=== PATIENT | female | born 1950 | race Caucasian/White ===

== ENCOUNTER 2016-05-13 11:27 | Outpatient (CLI) | payer MEDICARE | END 2016-05-13 11:28 | disposition home or self-care (01) | LOC: NAV LAB 11:27 | PROVIDERS: ATTEND Internal Medicine | DX: R10.84 Generalized abdominal pain (principal) | CPT/HCPCS: 36415; 82784; 83516; 86255 ==

== ENCOUNTER 2017-04-01 09:44 | Outpatient (CLI) | payer MEDICARE ==
--- NOTE | 2017-04-01 10:13 | RAD ---
CHEST TWO VIEWS: HISTORY: J40 (bronchitis). COMPARISON: Chest one view from 2010. FINDINGS: The lungs are clear with no pneumothorax or effusion. The cardiac silhouette and mediastinal contour s are within normal limits. No osseous abnormality. IMPRESSION: No acute intrathoracic abnormality. POS: [facility]
[2017-04-01 12:25] LABS: #Lymphocytes 1.5 thou/uL (1.20-3.40); #Monocytes 0.3 thou/uL (0.11-0.59); #Neutrophils 2.6 thou/uL (1.40-6.50); %Basophils 0.8 % (0.0-1.0); %Eosinophils 0.7 % (0.0-10.0); %Lymphocytes 32.8 % (21.0-51.0); %Monocytes 7.4 % (0.0-10.0); %Neutrophils 58.3 % (42.0-75.0); Hemoglobin 13.8 g/dL (12.0-16.0); Mean Corpuscular Hemoglobin 31.1 pg (27.0-31.0); Mean Corpuscular Volume 94.3 fl (81.0-99.0); Platelet Count 228 thou/uL (130-400); RBC Distribution Width 11.7 % (11.5-14.5); Red Blood Cell (RBC) Count 4.45 mill/uL (4.20-5.40); White Blood Cell (WBC) Count 4.5 thou/uL (4.8-10.8)
== END 2017-04-01 09:45 | disposition home or self-care (01) ==
LOC: NAV RAD 09:44
PROVIDERS: ATTEND Internal Medicine
DX: J40 Bronchitis, not specified as acute or chronic (principal)
CPT/HCPCS: 36415; 71020; 85025

== ENCOUNTER 2018-08-25 13:46 | Outpatient (CLI) | payer MEDICARE ==
--- NOTE | 2018-08-25 14:50 | RAD ---
RIGHT HIP TWO VIEWS: 08/25/18 HISTORY: Right hip pain. FINDINGS: Degenerative changes are seen manifested by osteophyte formation and joint space narrowing. No fractu re, dislocation or bony destruction seen. IMPRESSION: Right hip osteoarthritis. POS: [facility]
== END 2018-08-25 13:47 | disposition home or self-care (01) ==
LOC: NAV RAD 13:46
PROVIDERS: ATTEND Internal Medicine
DX: M25.551 Pain in right hip (principal); M16.11 Unilateral primary osteoarthritis, right hip

== ENCOUNTER → 2019-09-29 14:42 | Emergency (ER) | payer MEDICARE, OTHER | END | disposition left against medical advice (07) | LOC: NAV ERS 14:42 | DX: Z53.21 Procedure and treatment not carried out due to patient leaving prior to being seen by health care provider (principal) ==

== ENCOUNTER 2020-11-01 12:27 | Outpatient (CLI) | payer MEDICARE, OTHER ==
[2020-11-01 12:52] LABS: PTT 28.6 sec (22.9-36.1); Prothrombin Time 12.7 sec (12.0-14.7)
[2020-11-01 13:21] LABS: Follow-up Coag Comp? YES; Follow-up Result - Coag REPORT FAXED
[2020-11-01 16:55] LABS: Hemoglobin A1c 5.4 % (4.0-6.0)
== END 2020-11-01 12:28 | disposition home or self-care (01) ==
LOC: NAVSJIPCSP 12:27
PROVIDERS: ATTEND Orthopaedic Surgery
DX: Z01.812 Encounter for preprocedural laboratory examination (principal)
CPT/HCPCS: 36415; 83036; 85610; 85730

== ENCOUNTER 2021-09-08 19:22 | Emergency (ER) | payer MEDICARE, OTHER ==
[~2021-09-08 19:22] MED LIST: Iopamidol 370 76% 100 ML VIAL ONE
[2021-09-08 19:44] LABS: #Eosinphils 0.1 thou/uL (0.0-0.7); #Lymphocytes 2.1 thou/uL (1.20-3.40); #Monocytes 0.4 thou/uL (0.11-0.59); #Neutrophils 3.2 thou/uL (1.40-6.50); %Basophils 0.4 % (0.0-1.0); %Eosinophils 1.3 % (0.0-10.0); %Lymphocytes 36.1 % (21.0-51.0); %Monocytes 6.7 % (0.0-10.0); %Neutrophils 55.4 % (42.0-75.0); Hemoglobin 13.2 g/dL (12.0-16.0); Mean Corpuscular HGB CONC 30.8 g/dL (32.0-36.0); Mean Corpuscular Hemoglobin 30.8 pg (27.0-31.0); Mean Corpuscular Volume 99.8 fL (78.0-98.0); Mean Platelet Volume 6.9 fL (7.4-10.4); Platelet Count 296 thou/uL (130-400); RBC Distribution Width 12.9 % (11.5-14.5); White Blood Cell (WBC) Count 5.8 thou/uL (4.8-10.8)
[2021-09-08 19:56] LABS: INR-International Normal Ratio 0.9
[2021-09-08 19:57] LABS: PTT 25.1 sec (22.9-36.1)
[2021-09-08 20:06] LABS: ALT (SGPT) 14 U/L (8-55); AST (SGOT) 17 U/L (5-34); Albumin 4.4 g/dL (3.4-4.8); Alkaline Phosphatase 62 U/L (40-110); Anion Gap 15 mmol/L (10-20); BUN (Urea Nitrogen) 15 mg/dL (9.8-20.1); Bilirubin, Total 0.5 mg/dL (0.2-1.2); CK (CPK) 229 U/L (29-168); Calc. Creatinine Clearance 0 mL/min (70-130); Calcium 9.1 mg/dL (7.8-10.44); Carbon Dioxide 26 mmol/L (23-31); Chloride 107 mmol/L (98-107); Globulin 3.2 g/dL (2.4-3.5); Glucose 94 mg/dL (83-110); Potassium 4.1 mmol/L (3.5-5.1); Protein, Total 7.6 g/dL (5.8-8.1); Sodium 144 mmol/L (136-145)
== END 2021-09-08 21:24 | disposition home or self-care (01) ==
LOC: NAV ERS 19:22
DX: S00.03XA Contusion of scalp, initial encounter (principal); M25.551 Pain in right hip; R07.9 Chest pain, unspecified; W55.19XA Other contact with horse, initial encounter; E03.9 Hypothyroidism, unspecified; Z79.899 Other long term (current) drug therapy
CPT/HCPCS: 70450; 71260; 72125; 74177; 80053; 82550; 85025; 85610; 85730; Q9967

== ENCOUNTER 2022-01-08 16:58 | Emergency (ER) | payer MEDICARE, OTHER ==
[2022-01-08] MEDS ORDERED: Sodium Chloride 0.9% 1,000 ML ONE (17:29)
[2022-01-08] MEDS ORDERED: Morphine 2 MG/ML VIAL ONE (17:29)
[2022-01-08] MEDS ORDERED: Ondansetron PF 4 MG/2 ML Vial ONE (17:29)
[2022-01-08 17:49] LABS: #Lymphocytes 1.2 thou/uL (1.20-3.40); #Monocytes 0.3 thou/uL (0.11-0.59); #Neutrophils 5.4 thou/uL (1.40-6.50); %Basophils 0.4 % (0.0-1.0); %Eosinophils 0.4 % (0.0-10.0); %Lymphocytes 17.9 % (21.0-51.0); %Neutrophils 77.3 % (42.0-75.0); Hemoglobin 14.9 g/dL (12.0-16.0); Mean Corpuscular HGB CONC 31.6 g/dL (32.0-36.0); Mean Corpuscular Volume 98.2 fL (78.0-98.0); Platelet Count 303 thou/uL (130-400); RBC Distribution Width 12.5 % (11.5-14.5); Red Blood Cell (RBC) Count 4.82 mill/uL (4.20-5.40)
[2022-01-08 18:01] LABS: Bilirubin Negative (Negative); Blood, Urine Trace (Negative); Glucose, Urine (Dipstick) Negative (Negative); Ketone, Urine 40 mg/dL (Negative); Leukocyte Negative (Negative); Nitrite Negative (Negative); Protein, Urine (Dipstick) 30 mg/dL (Neg-Trace); Urobilinogen 0.2 mg/dL (Less than 2); pH, Urine 5.5 (5.0-9.0)
[2022-01-08 18:03] LABS: Clarity Cloudy (Clear); Specific Gravity, Urine 1.039 (1.002-1.036)
[2022-01-08 18:04] LABS: ALT (SGPT) 15 U/L (8-55); AST (SGOT) 18 U/L (5-34); Albumin 4.4 g/dL (3.4-4.8); Alkaline Phosphatase 82 U/L (40-110); Anion Gap 18 mmol/L (10-20); BUN (Urea Nitrogen) 16 mg/dL (9.8-20.1); Bilirubin, Total 0.7 mg/dL (0.2-1.2); Calc. Creatinine Clearance 0 mL/min (70-130); Carbon Dioxide 23 mmol/L (23-31); Chloride 105 mmol/L (98-107); Estimated GFR 59; Globulin 2.6 g/dL (2.4-3.5); Glucose 112 mg/dL (83-110); Lipase 8 U/L (8-78); Potassium 4.1 mmol/L (3.5-5.1); Sodium 142 mmol/L (136-145)
[2022-01-08 18:11] LABS: RBC/HPF 0-3 HPF (0-3); Squamous Epithelial 0-3 HPF (0-3); WBC/HPF 0-3 HPF (0-3)
[2022-01-08] MEDS ORDERED: Lidocaine Viscous Sol 2% 15 ml UD Cup ONE (19:29)
[2022-01-08 20:00] LABS: SARS-CoV-2 NAA Rapid Test Not Detected (NotDetected)
== END 2022-01-08 20:44 | disposition short-term general hospital (02) ==
LOC: NAV ERS 16:58
DX: K56.609 Unspecified intestinal obstruction, unspecified as to partial versus complete obstruction (principal); E03.9 Hypothyroidism, unspecified; Z20.822 Contact with and (suspected) exposure to COVID-19
CPT/HCPCS: 51701; 71045; 74177; 80053; 83605; 83690; 85025; 96374; 96375; 99285; J2270; U0002; 81003; 81015; J2405; J7050; Q9967

== ENCOUNTER 2022-05-05 17:48 | Emergency (ER) | payer MEDICARE, OTHER ==
[2022-05-05 18:23] LABS: #Lymphocytes 1.7 thou/uL (1.20-3.40); #Monocytes 0.4 thou/uL (0.11-0.59); #Neutrophils 2.7 thou/uL (1.40-6.50); %Eosinophils 0.3 % (0.0-10.0); %Lymphocytes 33.8 % (21.0-51.0); %Neutrophils 55.9 % (42.0-75.0); Hemoglobin 14.2 g/dL (12.0-16.0); Mean Corpuscular HGB CONC 32.8 g/dL (32.0-36.0); Mean Corpuscular Hemoglobin 31.8 pg (27.0-31.0); Mean Corpuscular Volume 96.9 fl (78.0-98.0); Mean Platelet Volume 7.2 fL (7.4-10.4); Platelet Count 253 10x3/uL (130-400); RBC Distribution Width 12.6 % (11.5-14.5); Red Blood Cell (RBC) Count 4.48 mill/uL (4.20-5.40); White Blood Cell (WBC) Count 4.9 10x3/uL (4.8-10.8)
[2022-05-05 18:35] LABS: INR-International Normal Ratio 0.9; PTT 26.4 sec (22.9-36.1); Prothrombin Time 12.2 sec (12.0-14.7)
[2022-05-05 18:38] LABS: D-Dimer Test 0.37 *mcg/mL (0.27-0.43)
[2022-05-05 18:41] LABS: ALT (SGPT) 16 U/L (8-55); AST (SGOT) 19 U/L (5-34); Albumin 4.4 g/dL (3.4-4.8); Alkaline Phosphatase 55 U/L (40-110); Anion Gap 14 mmol/L (10-20); BUN (Urea Nitrogen) 16 mg/dL (9.8-20.1); Bilirubin, Total 0.2 mg/dL (0.2-1.2); CK (CPK) 96 U/L (29-168); Calc. Creatinine Clearance 0 mL/min (70-130); Calcium 9.2 mg/dL (7.8-10.44); Carbon Dioxide 25 mmol/L (23-31); Chloride 101 mmol/L (98-107); Estimated GFR 52; Globulin 2.2 g/dL (2.4-3.5); Glucose 110 mg/dL (83-110); Lipase 27 U/L (8-78); Protein, Total 6.6 g/dL (5.8-8.1); Sodium 136 mmol/L (136-145)
== END 2022-05-05 19:07 | disposition home or self-care (01) ==
LOC: NAV ERS 17:48
DX: U07.1 COVID-19 (principal); E03.9 Hypothyroidism, unspecified; Z79.899 Other long term (current) drug therapy
CPT/HCPCS: 71046; 80053; 82550; 83605; 83690; 83880; 84484; 85025; 85379; 85610; 85730; 93005

== ENCOUNTER 2024-01-28 15:47 | Emergency (ER) | payer MEDICARE, OTHER | END 2024-01-28 17:15 | disposition home or self-care (01) | LOC: NAV ERS 15:47 | DX: B34.9 Viral infection, unspecified (principal); E03.9 Hypothyroidism, unspecified | CPT/HCPCS: 87428; 99283 ==